=== PATIENT | female | born 1985 | race Caucasian/White ===

== ENCOUNTER 2019-06-17 11:11 | Emergency (ER) | payer MEDICAID, OTHER ==
[~2019-06-17] VITALS: Ht 167.6 cm; Wt 64.0 kg
[2019-06-17] MEDS ORDERED: normal saline 1000ML IV soln IVB ONE (11:35)
[2019-06-17] MEDS ORDERED: ondansetron/PF 4mg/2ml inj IV ONE (11:35)
[2019-06-17 11:56] LABS: BASOPHILS % (AUTO) 0.2 % (0-1); EOSINOPHILS % (AUTO) 0 % (0-6); HEMOGLOBIN 12.3 g/dl (12.0-16.0); LYMPHOCYTES # (AUTO) 0.7 X10'3 (1.1-4.8); LYMPHOCYTES % (AUTO) 4.1 % (21-51); MEAN CORPUSCULAR HEMOGLOBIN 31.7 PG (27.0-31.0); MEAN CORPUSCULAR VOLUME 93.2 FL (78-98); MEAN PLATELET VOLUME 8.8 FL (7.4-10.4); MONOCYTES # (AUTO) 0.2 X10'3 (0-0.9); MONOCYTES % (AUTO) 1.4 % (2-12); NEUTROPHILS # (AUTO) 15.3 X10'3 (1.8-7.7); NEUTROPHILS % (AUTO) 94.3 % (42-75); PLATELET COUNT 233 X10'3 (140-440); RED BLOOD COUNT 3.87 X10'6 (4.20-5.60); RED CELL DISTRIBUTION WIDTH 14.3 % (11.5-14.5); WHITE BLOOD COUNT 16.3 X10'3 (4.5-11.0)
[2019-06-17 12:10] LABS: ALANINE AMINOTRANSFERASE 17 U/L (12-78); ALBUMIN 3.5 G/DL (3.4-5.0); ALBUMIN/GLOBULIN RATIO 0.9 (1.1-1.5); ALKALINE PHOSPHATASE 58 IU/L (46-116); ANION GAP 10 (8-16); ASPARTATE AMINO TRANSFERASE 12 U/L (10-37); BILIRUBIN,TOTAL 0.2 MG/DL (0.1-1.0); BLOOD UREA NITROGEN 9 MG/DL (7-18); BUN/CREATININE RATIO 13.6 (6.6-38.0); CALCIUM 8.9 MG/DL (8.5-10.1); CHLORIDE 104 MMOL/L (99-107); CREATININE 0.66 MG/DL (0.40-0.90); GLUCOSE 154 MG/DL (70-104); POTASSIUM 3.6 MMOL/L (3.5-5.1); SODIUM 139 MMOL/L (135-145); TOTAL PROTEIN 7.3 G/DL (6.4-8.2); eGFR > 90 ML/MIN
[2019-06-17] MEDS ORDERED: acetaminophen 325mg tablet PO ONE (12:30)
[2019-06-17] MEDS ORDERED: proCHLORperazine 10 MG/2 ml inj IV ONE (12:30)
[2019-06-17] MEDS ORDERED: ONDA4TAB6 PO (13:18)
[2019-06-17 15:02] VITALS: BP 107/53
== END 2019-06-17 15:00 | disposition home or self-care (01) ==
LOC: ER 11:12
DX: O26.892 Other specified pregnancy related conditions, second trimester (principal); E86.0 Dehydration; O21.9 Vomiting of pregnancy, unspecified; Z3A.16 16 weeks gestation of pregnancy
CPT/HCPCS: 36415; 80053; 85025; 96361; 96374; 96375; 99284; J0780; J2405; J7030

== ENCOUNTER 2019-06-19 05:46 | Emergency (ER) | payer MEDICAID, OTHER ==
[~2019-06-19] VITALS: Ht 167.6 cm; Wt 61.3 kg
[~2019-06-19 05:46] MED LIST: ONDA4TAB6 PO
[2019-06-19] MEDS ORDERED: normal saline 1000ml 1,000 ML IV ONE (05:59)
[2019-06-19] MEDS ORDERED: metoclopramide 5 mg/ml inj IV ONE ×2 (06:00)
[2019-06-19] MEDS ORDERED: normal saline 1000ML IV soln IVB ONE (06:00)
[2019-06-19] MEDS ORDERED: diphenhydrAMINE 50 mg/ml inj IV ONE (06:05)
[2019-06-19 06:09] LABS: BASOPHILS % (AUTO) 0.2 % (0-1); EOSINOPHILS % (AUTO) 0.1 % (0-6); HEMATOCRIT 30.2 % (35.0-45.0); HEMOGLOBIN 10.6 g/dl (12.0-16.0); LYMPHOCYTES # (AUTO) 0.3 X10'3 (1.1-4.8); LYMPHOCYTES % (AUTO) 4.1 % (21-51); MEAN CORPUSCULAR HEMOGLOBIN 32.3 PG (27.0-31.0); MEAN CORPUSCULAR HGB CONC 35.1 g/dL (33.0-36.5); MEAN PLATELET VOLUME 8.7 FL (7.4-10.4); MONOCYTES # (AUTO) 0.6 X10'3 (0-0.9); MONOCYTES % (AUTO) 7.8 % (2-12); NEUTROPHILS % (AUTO) 87.8 % (42-75); PLATELET COUNT 163 X10'3 (140-440); RED BLOOD COUNT 3.28 X10'6 (4.20-5.60); RED CELL DISTRIBUTION WIDTH 14.2 % (11.5-14.5); WHITE BLOOD COUNT 7.9 X10'3 (4.5-11.0)
[2019-06-19 06:23] LABS: HCG SERUM QL POSITIVE
[2019-06-19 06:27] LABS: ALANINE AMINOTRANSFERASE 21 U/L (12-78); ALBUMIN/GLOBULIN RATIO 0.9 (1.1-1.5); ALKALINE PHOSPHATASE 50 IU/L (46-116); ANION GAP 11 (8-16); ASPARTATE AMINO TRANSFERASE 21 U/L (10-37); BILIRUBIN,TOTAL 0.2 MG/DL (0.1-1.0); BLOOD UREA NITROGEN 4 MG/DL (7-18); BUN/CREATININE RATIO 6.6 (6.6-38.0); CALCIUM 8.2 MG/DL (8.5-10.1); CHLORIDE 100 MMOL/L (99-107); CREATININE 0.61 MG/DL (0.40-0.90); GLUCOSE 113 MG/DL (70-104); LIPASE 94 U/L (73-393); SODIUM 135 MMOL/L (135-145); TOTAL CARBON DIOXIDE 24.4 MMOL/L (24-32); TOTAL PROTEIN 6.5 G/DL (6.4-8.2); eGFR > 90 ML/MIN
[2019-06-19 06:30] LABS: POTASSIUM 2.8 MMOL/L (3.5-5.1)
[2019-06-19] MEDS ORDERED: D5-1/2NS w/20 mEq potassium per 1000ml IV ONE (06:40)
[2019-06-19] MEDS ORDERED: POTASSIUM BICARB 20meq eff tab 20 MEQ TABLET.EFF PO SCH (06:40)
[2019-06-19] MEDS ORDERED: morphine 2 MG/ML inj. syringe IV ONE ×2 (07:05→10:10)
[2019-06-19 07:18] LABS: CLARITY,URINE CLEAR (Clear); COLOR,URINE YELLOW (Yellow); GLUCOSE, URINE NEGATIVE (Neg); KETONES,URINE NEGATIVE (Neg); LEUKOCYTE ESTERASE ,URINE NEGATIVE (Neg); NITRITES, URINE NEGATIVE (Neg); OCCULT BLOOD,URINE NEGATIVE (Neg); PROTEIN,URINE TRACE mg/dl (Neg)
[2019-06-19 07:19] LABS: UA COLLECTION TYPE CLN CATCH MIDSTREAM
[2019-06-19 07:26] LABS: SQUAMOUS EPITHELIAL CELL,UR MANY /LPF (FEW)
[2019-06-19 07:28] LABS: RBC,URINE 0-2 /HPF (0-2); WBC,URINE 0-4 /HPF (0-4)
[2019-06-19 07:29] LABS: BACTERIA,URINE 2+ /HPF (Neg)
[2019-06-19] MEDS ORDERED: ondansetron/PF 4mg/2ml inj IV ONE ×2 (08:00→10:10)
[2019-06-19] MEDS ORDERED: ONDA4TAB6 PO (12:12)
[2019-06-19] MEDS ORDERED: MULT-1085 PO (12:12)
[2019-06-19 12:36] VITALS: BP 130/70
== END 2019-06-19 12:38 | disposition home or self-care (01) ==
LOC: ER 05:46
DX: O21.9 Vomiting of pregnancy, unspecified (principal); E87.6 Hypokalemia; Z90.49 Acquired absence of other specified parts of digestive tract; Z98.890 Other specified postprocedural states; Z79.899 Other long term (current) drug therapy; Z3A.16 16 weeks gestation of pregnancy
CPT/HCPCS: 36415; 71045; 80053; 81001; 83690; 84703; 85025; 87081; 87880; 96361; 96374; 96375; 96376; 99285; J1200; J2270; J2405; J2765; J3480; J7030